=== PATIENT | female | born 2000 ===

== ENCOUNTER 2022-01-02 14:11 | Outpatient (CLI) | payer OTHER | END 2022-01-02 17:17 | disposition home or self-care (01) | LOC: PRENATAL 14:11 | PROVIDERS: ATTEND Obstetrics & Gynecology Maternal & Fetal Medicine | DX: O35.0XX0 Maternal care for (suspected) central nervous system malformation in fetus, not applicable or unspecified (principal); Z3A.27 27 weeks gestation of pregnancy; O35.3XX0 Maternal care for (suspected) damage to fetus from viral disease in mother, not applicable or unspecified; O34.219 Maternal care for unspecified type scar from previous cesarean delivery ==